=== PATIENT | female | born 1940 | race Caucasian/White ===

== ENCOUNTER → 2016-10-22 | Outpatient (CLI) | payer MEDICARE ==
[~2016-10-22] MED LIST: ALDACTONE25 MG PO; ASPIRIN EC81 MG PO; FISH OIL 1,2001 EAC3 PO; LIPITOR40 MG PO; PEPCID40 MG PO; PLAVIX75 MG PO; PRILOSEC20 MG PO; TOPROL XL25 MG PO; VITAMIN D-40400 UNIT PO
== END ==
LOC: LGSMG 14:35
DX: N18.3 Chronic kidney disease, stage 3 (moderate) (principal)